=== PATIENT | female | born 1985 | race Caucasian/White ===

== ENCOUNTER 2016-10-13 13:11 | Emergency (ER) | payer BC ==
[2016-10-13 13:23] VITALS: BP 122/74; PULSE 86; TEMP 98.2; BMI 25.0
--- NOTE | 2016-10-13 13:46 | PDOC ---
History of Present Illness - General Chief Complaint: Vaginal Sxs Stated Complaint: VAGINAL DISCHARGE Time Seen by Provider: 10/13/16 13:31 - History of Present Illness Initial Comments: 10/13/16 14:15 Chief complaint: Vaginal itching and discharge History of present illness: After her last period one week ago, patient began to experience vaginal itching, redness, and cheesy white discharge. She recalls similar symptoms in the distant past when she had a yeast infection. She treated herself with one application of miconazole, with transient improvement. However her symptoms are persistent. Review of systems: Denies abdominal pain, bleeding, lesions including blisters or bumps. Her boyfriend has mild itching in the genital area but no lesions. Past medical history: No history of STD. On control pills. Otherwise healthy Social/family history reviewed and noncontributory. Physical exam: Alert and oriented well-developed well-nourished no acute distress cheerful and cooperative Abdomen soft nontender without mass or organomegaly. Nondistended. Normal bowel sounds Vaginal exam: Mild erythema of the vulva. No lesions. Thick white vaginal discharge with mucosal erythema. Again no lesions were present. Os was closed. No cervical lesions or erosions. Impression: Vulvovaginitis, [place] Plan: Diflucan, PROGRESS[facility] [employer] [facility] REGISTERED NURSE follow-up if no improvement. Topical antifungal for boyfriend recommended. Past History - Past Medical History Allergies/Adverse Reactions: Allergies Allergy/AdvReac Type Severity Reaction Status Date / Time No Known Allergies Allergy Verified 10/13/16 13:12 Home Medications: Ambulatory Orders Fluconazole 150 mg PO ONCE #1 tablet 10/13/16 Miconazole Nitrate [Monistat 1] 1 each VG ONCE 10/13/16 Other medical history: DENIES - Reproductive History Is Patient Now?: No - Immunization History Immunization Up to Date: Yes - Psycho/Social/Smoking Cessation Hx Anxiety: No Suicidal Ideation: No Smoking History: Never smoked Have you smoked in the past 12 months: No Information on smoking cessation initiated: No Hx Alcohol Use: No Drug/Substance Use Hx: No Substance Use Type: None *Physical Exam - Vital Signs Last Vital Signs Temp Pulse Resp BP Pulse Ox 98.2 F 86 20 122/74 99 10/13/16 13:11 10/13/16 13:11 10/13/16 13:11 10/13/16 13:11 10/13/16 13:11 *DC/Admit/Observation/Transfer Diagnosis at time of Disposition: Vaginitis and vulvovaginitis - Discharge Dispostion Disposition: HOME Condition at time of disposition: Stable Admit: No - Prescriptions Prescriptions: Fluconazole 150 mg PO ONCE #1 tablet - Patient Instructions Additional Instructions: See synthetic filament extruder if no improvement for further evaluation and treatment.
[2016-10-13 13:58] LABS: URINE APPEARANCE Clear; URINE BILIRUBIN Negative (NEGATIVE); URINE BLOOD Trace-lysed (NEGATIVE); URINE GLUCOSE (UA) Negative (NEGATIVE); URINE KETONE Negative (NEGATIVE); URINE NITRITE Negative (NEGATIVE); URINE PROTEIN Negative (NEGATIVE); URINE UROBILINOGEN 0.2 E.U/dl (0.2-1.0)
[2016-10-13 14:00] LABS: URINE COLOR YELLOW; URINE LEUK ESTERASE 1+ (NEGATIVE)
[2016-10-13] MEDS ORDERED: FLUCONAZOLE 50 MG TABLET PO ONE (14:05)
[2016-10-13] MEDS ORDERED: FLUCONAZOLE 150 MG TABLET PO ONE (14:06)
[2016-10-13 14:27] LABS: URINE BACTERIA FEW /hpf (NEGATIVE); URINE RBC 0-2 /hpf (0-3)
== END 2016-10-13 14:22 | disposition home or self-care (01) ==
LOC: FER 13:11
DX: N76.0 Acute vaginitis (principal)
CPT/HCPCS: 36415; 81003; 81015; 84703; 87491; 87591; 99282-25